=== PATIENT | female | born 1990 | race Caucasian/White ===

== ENCOUNTER 2016-06-18 05:35 | Inpatient (IN) | payer OTHER ==
--- NOTE | ~2016-06-18 | PA ---
Unit #: [id number] #: [id number] Patient: DIANA CRUZ [id number] [facility] [address] [place] [address] [id number] I MR#: [id number] NAME: DIANA CRUZ. ROOM: P114 Age: 26 Sex: F Admission Date: 06/18/2016 : 1990 Date of Assessment: 06/18/2016 Attending Physician: Salbador Rubalcava M.D. Admitting Physician: Salbador Rubalcava M.D. Primary Care Physician: Juli Alonso M.D. PSYCHIATRIC ASSESSMENT DATE OF SERVICE 06/18/2016. IDENTIFYING DATA Ms. Cruz is a 26-year-old white female, who is a resident of [place], [place], and was transferred to us from the hospital emergency room. CHIEF COMPLAINT "Someone is trying to put bullets in me." HISTORY OF PRESENT ILLNESS Ms. Cruz is a 26-year-old white female with history of mood disorder and psychosis, who was apparently missing for 24 hours and was found and was taken to the hospital emergency room by father and . The patient upon presentation stated that she felt that someone was trying to put bullets on her and stated that she is scared and stated over and over that she was scared that she was going to lose her kids and during initial assessment, the patient had extreme difficulty in complaining of thoughts and was exhibiting some looseness of association, cognitive impairment, and thought blocking, and acute psychosis with worsening depressive symptoms, was unkempt, disheveled, and had some cuts on her wrist and I made reference to hurting her brother's feeling and spoke about making her boyfriend angry and began to cry during assessment, but could not express what made her upset and stated that she has been having constant thoughts of wanting to harm herself and stated that she would slit her wrist and stated that she has been aggressive with family members. It appears that and father brought her to the hospital, but they left her prior to assessment and father on daughter's disappearance for past 24 hours and her erratic behavior once she was found and was seen to be exhibiting some acute psychosis and reports that she is homeless even though she has a and a father and was out of touch with reality and was medically cleared and was transferred to us as the patient was constantly reporting having thoughts of wanting to hurt herself and cut her wrist and was voicing suicidal thoughts, intent and plan with acute confusion and disappearing for 24 hours and having bizarre behavior and disorganized thought and speech, and was seen to be a significant danger to self and recommendation for inpatient level of care for safety and stabilization was made. SUBSTANCE ABUSE HISTORY The patient reports occasional use of cannabis, but denies any regular drug abuse. Unit #: [id number] #: [id number] Patient: DIANA CRUZ PAST PSYCHIATRIC HISTORY The patient has had psychiatric treatment and has been diagnosed and treated for mood disorder with psychosis and review of the medical records indicate that she is supposed to be on a combination of Zyprexa, Effexor, Strattera, and BuSpar that appears that she has been noncompliant with medications as she has been decompensating. PAST MEDICAL HISTORY The patient's medical history is insignificant. ALLERGIES Doxycycline, Prozac, penicillin. PERSONAL AND SOCIAL HISTORY A 26-year-old white female, who reports that she is and lives at home with her and has fairly decent social support system. MENTAL STATUS EXAMINATION Young white female who was casually dressed with fair personal hygiene, appears to be in no acute distress or discomfort. She was awake and alert on interaction with intact orientation to time, place, and person. Her mood was anxious and depressed with a congruent affect. Her speech was slow and restricted in content. Her thought processes were disorganized with some looseness of associations, thought blocking, paranoid ideations, and suicidal ideations. Her insight and judgment remain significantly impaired. DIAGNOSTIC IMPRESSION Psychiatric: Bipolar disorder, most recent episode depressed, recurrent, moderate, with psychosis. Medical: None. Stressors: Moderate psychosocial stressors. TREATMENT PLAN 1. The patient has presented with history of mood disorder and psychosis and has been decompensating and will need inpatient hospitalization for safety and stabilization. We will start her back on her home medications. We will monitor response and make further adjustments as needed. 2. Supportive therapy was provided to the patient. 3. Safe, structured, and nourishing environment will be provided. ESTIMATED LENGTH OF STAY 5 to 7 days. ABILITY TO HELP SELF Limited. WILLINGNESS TO HELP SELF The patient appears to be willing to help self. STRENGTHS 1. Communicative. 2. Cooperative. PROBLEMS 1. Chronic dysphoric symptoms. 2. Poor social support system. Unit #: [id number] #: [id number] Patient: DIANA CRUZ DISCHARGE CRITERIA This will be contingent upon the patient's ability to show resolution of her depression and anxiety and psychosis and her ability to stay safe to herself, particularly after discharge from the hospital. Dictated by... Jj Taylor/isabella TD: 06/19/2016 08:35 JOB #: [id number] PSYCHIATRIC ASSESSMENT Page 1 of 1 X Salbador Rubalcava MD X PSYCHIATRIC ASSESSMENT
--- NOTE | ~2016-06-18 | PN ---
Unit #: [id number] #: [id number] Patient: DIANA CRUZ [id number] [facility] [address] [place] [address] [id number] I MR#: [id number] NAME: DIANA CRUZ ROOM: P110 Age: 26 Sex: F Admission Date: 06/18/2016 : 1990 Attending Physician: Salbador Rubalcava M.D. Admitting Physician: Salbador Rubalcava M.D. Primary Care Physician: Juli Alonso M.D. [facility] NOT[facility] DATE OF SERVICE: 07/01/2016 SUBJECTIVE Ms. Cruz is a 26-year-old white female who was seen today and chart was reviewed, and case was discussed with the staff. She has been exhibiting bizarre behavior and has knocked the door and entered the room, she responds the knock and turned back and looked at me while she was lying in the bed and then she got back on the pillow and was seen to be awake with the eyes open and was able to acknowledge me and responsive to the knock on the door, but then she refused to interact with me or make eye contact or answer any of my questions and as I was trying to talk to her and engage her in conservation just lately and though she did not interact and it appears to be very intentional and that she did not appear to be in any acute distress or discomfort, just not wanting to talk, which appears to be a choice at this time. However, she has been taking medications including Zyprexa, which was just increased to 10 mg b.i.d. has adjusted without any tolerability issues. MENTAL STATUS EXAMINATION Young white female, who was casually dressed with fair personal hygiene, appears to be in no acute distress or discomfort. She was awake and alert on interaction with intact orientation. Her mood was anxious with congruent affect. She denies any suicidal or homicidal ideations. Her insight and judgment remain slightly impaired. TREATMENT PLAN 1. We will continue on her current medications and treatment protocol. We will monitor her response to the medications and make further adjustments as needed. 2. We will continue to follow up. Dictated by... Jj Taylor/isabella TD: 07/02/2016 03:18 JOB #: [id number] Unit #: [id number] #: [id number] Patient: DIANA CRUZ PROGRESS NOTES Page 1 of 1 X Salbador Rubalcava MD PROGRESS NOTE
--- NOTE | ~2016-06-18 | PN ---
Unit #: [id number] #: [id number] Patient: DIANA CRUZ [id number] [facility] [address] [place] [address] [id number] I MR#: [id number] NAME: DIANA CRUZ. ROOM: P114 Age: 26 Sex: F Admission Date: 06/18/2016 : 1990 Attending Physician: Salbador Rubalcava M.D. Admitting Physician: Salbador Rubalcava M.D. Primary Care Physician: Jj Lu PROGRESS NOTES DATE 06/24/2016 DISCUSSION Ms. Cruz is a 26-year-old white female with mood disorder. She was seen today and chart was reviewed and case was discussed with the staff. The patient has been anxious and withdrawn. SI is denied. On reports by me, she always had seemed to be in a catatonic state and refuses to interact socially or any conversation. Staff reports that later on she got up and got on the phone with her family and was crying and was talking to her kids as well and was crying, saying that she wants to get better to come home. She feels that she will be stuck here forever. She once again was seen to be unkempt, disheveled, curled up in her bed and refusing to interact with me very much and unable to carry on any meaningful conversation with significant thought blocking with disorganized thoughts, speech and behavior. She has been on Zyprexa and wanted to increase the dosage of that to 5 mg in the morning and 10 mg at bedtime. We will monitor her response to medication and made adjustments as needed. Dictated by... Jj Taylor/arsh TD: 06/25/2016 12:34 JOB #: [id number] [facility] PROGRESS NOTES Page 1 of 1 X Salbador Rubalcava MD PROGRESS NOTE
--- NOTE | ~2016-06-18 | PN ---
Unit #: [id number] #: [id number] Patient: DIANA CRUZ [id number] [facility] [address] [place] [address] [id number] I MR#: [id number] NAME: DIANA CRUZ. ROOM: 64 Age: 26 Sex: F Admission Date: 06/18/2016 : 1990 Attending Physician: Salbador Rubalcava M.D. Admitting Physician: Salbador Rubalcava M.D. Primary Care Physician: Jj Lu PROGRESS NOTES DATE June 19, 2016 DISCUSSION Ms. Cruz is a 26-year-old white female, who was seen today and chart was reviewed and the case was discussed with the staff. She has been anxious, withdrawn, and rather seclusive to herself and has been exhibiting some confusion and looseness of association, thought blocking, bizarre behavior, and difficulty following directions, and does not appear to be showing much improvement in her mood and functioning. MENTAL STATUS EXAMINATION Young white female, who was casually dressed with fair personal hygiene and appears to be in no acute distress or discomfort. The patient was awake and alert on interaction with intact orientation. Her mood was anxious with a congruent affect. Her speech is slow and restricted in content. Her thought processes are disorganized with some looseness of associations and thought blocking, and paranoid ideations. Her insight and judgment remain significantly impaired. TREATMENT PLAN 1. We will continue her on her current medications and treatment protocol, and will monitor her response to the medications, and make further adjustments as needed. 2. We will continue to followup. Dictated by... Jj Taylor/ingrid TD: 06/20/2016 05:29 JOB #: [id number] Unit #: [id number] #: [id number] Patient: DIANA CRUZ PROGRESS NOTES Page 1 of 1 X Salbador Rubalcava MD PROGRESS NOTE
--- NOTE | ~2016-06-18 | PN ---
Unit #: [id number] #: [id number] Patient: DIANA CRUZ [id number] [facility] [address] [place] [address] [id number] I MR#: [id number] NAME: DIANA CRUZ. ROOM: 14 Age: 26 Sex: F Admission Date: 06/18/2016 : 1990 Attending Physician: Salbador Rubalcava M.D. Admitting Physician: Salbador Rubalcava M.D. Primary Care Physician: Jj Lu PROGRESS NOTES DATE 06/21/2016 DISCUSSION Ms. Cruz is a 26-year-old white female with mood disorder and psychosis who was seen today and chart was reviewed and case was discussed with the staff who reports the patient continues to act very bizarre and violent and psychotic behavior since yesterday and has needed p.r.n. medications and seclusion and once again yesterday, the patient was taking her menses pads out and they were throwing them in the middle of the hallways and walking into males rooms and refusing to cooperate and throwing things at staff and flinging, swinging and refusing to cooperate. Intramuscular injection of Geodon and Ativan was given. Per reports, the patient was sitting in the day room in the chair and was in a frozen state and she was looking at the floor and would not make eye contact or acknowledge me or respond to any of the questions and had been exhibiting the same state of mind until she starts going into acute agitation and psychosis and with p.r.n. medications we will continue to monitor her response to treatment recommendations and we will make further adjustments as needed. Dictated by... Jj Taylor/minna TD: 06/23/2016 01:17 JOB #: [id number] [facility] PROGRESS NOTES Page 1 of 1 X Salbador Rubalcava MD PROGRESS NOTE
--- NOTE | ~2016-06-18 | PN ---
Unit #: [id number] #: [id number] Patient: DIANA CRUZ [id number] [facility] [address] [place] [address] [id number] I MR#: [id number] NAME: DIANA CRUZ. ROOM: [facility] Age: 26 Sex: F Admission Date: 06/18/2016 : 1990 Attending Physician: Salbador Rubalcava M.D. Admitting Physician: Salbador Rubalcava M.D. Primary Care Physician: Jj Lu PROGRESS NOTES DATE June 25, 2016 DISCUSSION Ms. Cruz is a 26-year-old, white female who was seen today and chart was reviewed. Her case was discussed with the staff. Patient has been anxious, withdrawn, and rather seclusive to herself. Meanwhile, she has been cooperative with treatment recommendations and has been taking medications and tolerating them fairly well with no reported side effects. MENTAL STATUS EXAMINATION Young white female who was casually dressed with a fair personal hygiene and appears to be in no acute distress or discomfort. She was awake and alert with impaired attention and concentration. Her mood is anxious with a congruent affect. Her speech is slow and restricted in content. Thought processes were disorganized with some looseness of association. Her insight and judgement remain significantly impaired. TREATMENT PLAN 1. We will continue on her current medications and treatment protocol. Will monitor her response to the medications and make further adjustments as needed. 2. We will continue to follow up. Dictated by... Jj Taylor/misael TD: 06/27/2016 07:36 JOB #: [id number] Unit #: [id number] #: [id number] Patient: DIANA CRUZ PROGRESS NOTES Page 1 of 1 X Salbador Rubalcava MD PROGRESS NOTE
--- NOTE | ~2016-06-18 | PN ---
Unit #: [id number] #: [id number] Patient: DIANA CRUZ [id number] [facility] [address] [place] [address] [id number] I MR#: [id number] NAME: DIANA CRUZ. ROOM: [facility] Age: 26 Sex: F Admission Date: 06/18/2016 : 1990 Attending Physician: Salbador Rubalcava M.D. Admitting Physician: Salbador Rubalcava M.D. Primary Care Physician: Jj Lu NOTES DATE OF SERVICE: 06/30/2016 SUBJECTIVE Ms. Cruz is a 26-year-old white female who was seen today and chart was reviewed, and case was discussed with the staff, who has been very seclusive to herself and has not been coming out socializing, interacting and has not been talking much at all patient was once again lying in a bed and was able to acknowledge me and make eye contact, then was just mumbling at best and I could not make anything out as to what she was trying to say and has been exhibiting similar behavior, though she has been taking the medications and is tolerating them fairly well. MENTAL STATUS EXAMINATION Young white female who was casually dressed with a fair personal hygiene and appears to be in no acute distress or discomfort. She was awake and alert on interaction with intact orientation. Her mood was anxious with a congruent affect. She denies any suicidal or homicidal ideations, and also denies any auditory or visual hallucinations. Her insight and judgment remain slightly impaired. TREATMENT PLAN 1. We will continue on her current medications and treatment protocol. We will monitor her response to the medication and make further adjustments as needed. 2. We will continue to follow up. Dictated by... Jj Taylor/isabella TD: 07/01/2016 05:07 JOB #: [id number] Unit #: [id number] #: [id number] Patient: DIANA CRUZ PROGRESS NOTES Page 1 of 1 X Salbador Rubalcava MD PROGRESS NOTE
--- NOTE | ~2016-06-18 | CO ---
Unit #: [id number] #: [id number] Patient: DIANA CRUZ [id number] [place] [address] [id number] I MR#: [id number] NAME: DIANA CRUZ ROOM: [facility] Age: 26 Sex: F Admission Date: 06/18/2016 : 1990 Attending Physician: Salbador Rubalcava M.D. Primary Care Physician: Juli Alonso M.D. Consultation Date: 06/20/2016 CONSULTATION REPORT SUBJECTIVE Diana is a 26-year-old with an abnormal urinalysis on admission. We have been asked to assess and treat. She has had no complaints of urgency, frequency, dysuria, nausea or vomiting. There have been no recorded increased temperatures. OBJECTIVE GENERAL: Alert, well nourished, in no apparent distress. VITAL SIGNS: Blood pressure 120/70, heart rate 80, respirations 16, temperature 98.6. DIAGNOSTIC STUDIES LABORATORY RESULTS: Admission urinalysis, 3+ bacteria, 50 to 100 wbc's. ASSESSMENT Urinary tract infection. PLAN Bactrim DS one p.o. b.i.d. x3 days. Dictated by... Shayy Edge PBreanneABreanne-C. for Jj Lee/isabella TD: 07/03/2016 02:04 JOB #: [id number] CONSULTATION REPORT Page 1 of 1 X Shayy Edge X CONSULTATION REPORT
--- NOTE | ~2016-06-18 | HP ---
Unit #: [id number] #: [id number] Patient: DIANA CRUZ [id number] [place] [address] [id number] I MR#: [id number] NAME: DIANA CRUZ. ROOM: [facility] Age: 26 Sex: F Admission Date: 06/18/2016 : 1990 Attending Physician: Salbador Rubalcava M.D. Admitting Physician: Salbador Rubalcava M.D. Primary Care Physician: Juli Alonso M.D. HISTORY AND PHYSICAL HISTORY OF PRESENT ILLNESS Diana is a 26 year old admitted to [address] [place] [address] with psychotic behavior. She remains quite psychotic and is not a good historian so her history is taken from her chart. PAST MEDICAL HISTORY 1. Asthma 2. History of migraine headaches PAST SURGICAL HISTORY Nothing reported ALLERGIES Penicillin, doxycycline, Prozac, Strattera SOCIAL HISTORY Smokes one pack per day. Denies alcohol. Admits to using marijuana on occasion. FAMILY HISTORY Medically noncontributory. REVIEW OF SYSTEMS She does not answer questions appropriately. There are no reports of nausea or vomiting or diarrhea. She has had no cough or increased temperature. CURRENT MEDICATIONS 1. Claritin 10 mg q day 2. Effexor 100 mg q day 3. Ditropan 10 mg q day 4. Zyprexa 5 mg q.h.s. 5. Tegretol 200 mg b.i.d. 6. BuSpar 15 mg b.i.d. 7. Milk of Magnesia p.r.n. 8. Maalox p.r.n. 9. Tylenol p.r.n. 10. Proventil inhaler p.r.n. 11. Nicotine patch 14 mg q day PHYSICAL EXAMINATION GENERAL: Alert, well-nourished, in no apparent distress. Unit #: [id number] #: [id number] Patient: DIANA CRUZ VITAL SIGNS: Blood pressure 110/76, heart rate 84, respirations 16, temperature 98.6. WEIGHT: 183 pounds. HEIGHT: 5'3". SKIN: Warm and dry without rash or lesion. HEENT: Normocephalic. TMs not viewed. Oral and nasal passages clear. Conjunctivae clear. Pupils equal, round and reactive to light and accommodation. Extraocular movements intact. NECK: Supple without lymphadenopathy or thyromegaly. HEART: Regular rate and rhythm without murmur. LUNGS: Clear. ABDOMEN: Soft, nontender. : Not done. EXTREMITIES: No evidence of cyanosis, clubbing or edema. Moves all extremities without focal deficit. NEUROLOGICAL: Grossly within normal limits. Cranial Nerves: II: Visual louis are intact. III, IV AND : Extraocular movements are intact. Pupils are equal, round and reactive to light. V: Facial sensation is grossly normal. VII: Facial movements and expression are normal. VIII: Auditory acuity grossly intact. IX, X: Uvula is midline. Phonation is normal. XI: Patient shrugs shoulders and turns head normally. XII: Tongue protrudes in the midline. Sensory and Motor Function: Sensory and motor sensation is grossly normal. Motor: moves all extremities well. Coordination: Gait is normal. Deep Tendon Reflexes: Intact. IMPRESSION Psychiatric admission RECOMMENDATIONS PSYCHIATRIC: Per psychiatrist. MEDICAL: I see no contraindications to participating in facility's activities. MEDICAL PROGNOSIS Good. MEDICAL CONDITION Stable. Dictated by... Shayy Edge P.A.-C. for Jj Lee/minna TD: 06/18/2016 22:28 JOB #: [id number] Unit #: [id number] #: [id number] Patient: DIANA CRUZ HISTORY AND PHYSICAL Page 1 of 1 X Shayy Edge X HISTORY AND PHYSICAL
--- NOTE | ~2016-06-18 | PN ---
Unit #: [id number] #: [id number] Patient: DIANA CRUZ [id number] [facility] [address] [place] [address] [id number] I MR#: [id number] NAME: DIANA CRUZ. ROOM: P114 Age: 26 Sex: F Admission Date: 06/18/2016 : 1990 Attending Physician: Salbador Rubalcava M.D. Admitting Physician: Salbador Rubalcava M.D. Primary Care Physician: Jj Lu PROGRESS NOTES DATE 06/20/2016 DISCUSSION Ms. Cruz is a 26-year-old white female who was seen today and chart was reviewed and case was discussed with the staff. She has been agitated, irritable, acutely psychotic and has been having episodes of violent outburst requiring p.r.n. intramuscular injections to be given and she got injection yesterday and then once again this morning. She started yelling, screaming, cursing and was very delusional and responding to internal stimuli and staff were unable to identify any triggers. However, she was throwing her dirty tampons out in the floors and staff had to ____ and she was swinging at them and screaming, yelling. An intramuscular injection of Geodon had to be given. Her medication had been initiated yesterday but she has not been able to show a therapeutic response and as such will transfer her to acute psychiatric unit for mental health and will monitor her response and make further adjustments in her medications and treatment as needed. Dictated by... Jj Taylor/macario TD: 06/20/2016 23:05 JOB #: [id number] [facility] PROGRESS NOTES Page 1 of 1 X Salbador Rubalcava MD PROGRESS NOTE
--- NOTE | ~2016-06-18 | PN ---
Unit #: [id number] #: [id number] Patient: DIANA CRUZ [id number] [facility] [address] [place] [address] [id number] I MR#: [id number] NAME: DIANA CRUZ. ROOM: P110 Age: 26 Sex: F Admission Date: 06/18/2016 : 1990 Attending Physician: Salbador Rubalcava M.D. Admitting Physician: Salbador Rubalcava M.D. Primary Care Physician: Jj Lu PROGRESS NOTES DATE 06/27/2016 DISCUSSION Ms. Cruz is a 26-year-old white female with mood disorder who was seen today and chart was reviewed and case was discussed with the staff. She has been anxious, withdrawn and rather seclusive to herself. Meanwhile, she has been cooperative with treatment recommendations and has been taking medications and tolerating them fairly well with no reported side effects. MENTAL STATUS EXAMINATION Young white female who was casually dressed with fair personal hygiene and appears to be in no acute distress or discomfort. She was awake and alert with impaired attention and concentration. Her mood was anxious with congruent affect. His speech is slow and restricted in content. Her thought processes were disorganized with some looseness of associations, thought blocking and paranoid ideations. Her insight and judgement remains significantly impaired. TREATMENT PLAN 1. Will continue on current medications and treatment protocol. Will monitor her response to the medications and make further adjustments as needed. 2. Will continue to follow up. Dictated by... Jj Taylor/macario TD: 06/30/2016 08:17 JOB #: [id number] Unit #: [id number] #: [id number] Patient: DIANA CRUZ PROGRESS NOTES Page 1 of 1 X Salbador Rubalcava MD PROGRESS NOTE
--- NOTE | ~2016-06-18 | PN ---
Unit #: [id number] #: [id number] Patient: DIANA CRUZ [id number] [facility] [address] [place] [address] [id number] I MR#: [id number] NAME: DIANA CRUZ. ROOM: P114 Age: 26 Sex: F Admission Date: 06/18/2016 : 1990 Attending Physician: Salbador Rubalcava M.D. Admitting Physician: Salbador Rubalcava M.D. Primary Care Physician: Jj Lu PROGRESS NOTES DATE 06/22/2016 DISCUSSION Ms. Cruz is a 26-year-old white female with mood disorder and psychosis who was seen today and chart was reviewed and case was discussed with the staff. She remains confused, anxious, withdrawn and rather seclusive to herself. Meanwhile, she has been taking medication and tolerating them fairly well with no reported side effects. However, she has been able to carry on any meaningful conversation. MENTAL STATUS EXAMINATION Young white female who was casually dressed with fair personal hygiene, appears to be in no acute distress or discomfort. She was awake and alert on interaction with intact orientation. Her mood was anxious with congruent affect. She denies any suicidal or homicidal ideations. Her insight and judgement remains slightly impaired. TREATMENT PLAN 1. We will continue her on her current treatment protocol. We will monitor her response and make further adjustments as needed. 2. We will continue to follow up. Dictated by... Jj Taylor/minna TD: 06/23/2016 21:49 JOB #: [id number] Unit #: [id number] #: [id number] Patient: DIANA CRUZ [facility] PROGRESS NOTES Page 1 of 1 X Salbador Rubalcava MD PROGRESS NOTE
--- NOTE | ~2016-06-18 | PN ---
Unit #: [id number] #: [id number] Patient: DIANA CRUZ [id number] [facility] [address] [place] [address] [id number] I MR#: [id number] NAME: DIANA CRUZ. ROOM: P114 Age: 26 Sex: F Admission Date: 06/18/2016 : 1990 Attending Physician: Salbador Rubalcava M.D. Admitting Physician: Salbador Rubalcava M.D. Primary Care Physician: Jj Lu PROGRESS NOTES DATE 06/23/2016 DISCUSSION Ms. Cruz is a 26-year-old white female who was seen today and chart was reviewed and case was discussed with the staff. She has been anxious, withdrawn and rather seclusive to herself though once again has been exhibiting bizarre behavior, significant thought blocking, poor personal hygiene as she has been moved to a private camera monitoring room and her personal hygiene has been very compromised and her clothes and stuff are all over the room and she is curled up in the bed and that she was able to acknowledge me and look at me, she was unable to utter even a single word or single sentence and has not been able to carry on any meaningful conversation. She then has been seen to have episodes of violent outburst with physical aggression requiring management and p.r.n. medications to be given. As such, will continue current level of precautions and treatment protocol. Will monitor her response to treatment intervention. Will make further adjustments as needed. Dictated by... Jj Taylor/macario TD: 06/24/2016 19:42 JOB #: [id number] [facility] PROGRESS NOTES Page 1 of 1 X Salbador Rubalcava MD PROGRESS NOTE
--- NOTE | ~2016-06-18 | PN ---
Unit #: [id number] #: [id number] Patient: DIANA CRUZ [id number] [facility] [address] [place] [address] [id number] I MR#: [id number] NAME: DIANA CRUZ. ROOM: [facility] Age: 26 Sex: F Admission Date: 06/18/2016 : 1990 Attending Physician: Salbador Rubalcava M.D. Admitting Physician: Salbador Rubalcava M.D. Primary Care Physician: Jj Lu PROGRESS NOTES DATE 06/29/2016 DISCUSSION The patient is abed today. She offers no complaints but is virtually mute during attempted interview. Dr. Rubalcava will resume care of the patient on 06/30/2016. Dictated by... Main Talavera M.D. CB/minna TD: 06/30/2016 04:28 JOB #: [id number] [facility] PROGRESS NOTES Page 1 of 1 X Main Talavera MD X PROGRESS NOTE
--- NOTE | ~2016-06-18 | DS ---
Unit #: [id number] #: [id number] Patient: DAINA CRUZ [id number] [facility] [address] [place] [address] [id number] I MR#: [id number] NAME: DIANA CRUZ. ROOM: P110 Age: 26 Sex: F Admission Date: 06/18/2016 : 1990 Discharge Date: 07/02/2016 Attending Physician: Salbador Rubalcava M.D. Primary Care Physician: Juli Alonso M.D. DISCHARGE SUMMARY IDENTIFYING DATA Ms. Cruz is a 26-year-old white female, who is a resident of [place], [place] and was transferred to us from the emergency room. DISCHARGE DIAGNOSES Psychiatric: Bipolar disorder, most recent episode depressed, recurrent, moderate, with psychosis. Medical: None. Stressors: Moderate psychosocial stressors. HISTORY OF PRESENT ILLNESS Please see initial psychiatric evaluation for details. PAST PSYCHIATRIC HISTORY Please see initial psychiatric evaluation for details. PAST MEDICAL HISTORY Please see initial psychiatric evaluation for details. HOSPITAL COURSE The patient [facility] and was oriented to the hospital environment. Routine p.r.n. medications were initiated, and she was started back on her home medication. However, on presentation, the patient was seen to be acutely psychotic with confusion, thought blocking, bizarre behavior, inability to carry any meaningful conversation, and was seen to be very seclusive and guarded to herself. However soon afterwards, she started getting agitated and irritable, and aggressive and was creating lot of disturbance on the unit, and walking towards the patient's room, and refusing to follow direction. The patient is also seen to be taking her menstrual pads out and throwing it across in the hallways and the patient's room and was in holding and seclusion and restraints twice. Intramuscular injections and p.r.n. medications were given and medications as such were adjusted and Zyprexa was added, which was then gradually titrated and though she responded the medication in a way that she did not show any further episode of agitation, aggression, hostility, requiring any physical interventions with seclusion and restraints, she was still seen to be very withdrawn and seclusive to herself. Noticed that she was awake and alert as she would acknowledge of my knocking at the door and look at me, but then she will choose intentionally not to talk to me at all and was taking the medications regularly and was tolerating them fairly well and with no further adjustments being made in her medications, it was decided that she will be discharged home and will continue treatment on an outpatient basis. Unit #: [id number] #: [id number] Patient: DIANA CRUZ DISCHARGE MEDICATIONS Effexor 100 mg a day for depression and Zyprexa 10 mg b.i.d. for psychosis and BuSpar 15 mg b.i.d. for anxiety. DISCHARGE CONDITION Stable. PROGNOSIS Fair. Dictated by... Jj Taylor/isabella TD: 07/02/2016 07:22 JOB #: [id number] DISCHARGE SUMMARY Page 1 of 1 X Salbador Rubalcava MD X DISCHARGE SUMMARY
--- NOTE | ~2016-06-18 | A ---
[facility] Nutrition Therapy DATE: 06/30/16 Patient: DIANA CRUZ Physician: CONNORF Address: [address] [place] [address] Room/Bed: [address], Zip: [place] [address] Admit Date: 06/18/16 Date of : [birth year] Height: 5 3 Weight: 183 83.46 NUTRITIONAL ASSESSMENT: REASON: LENGTH OF STAY PATIENT ADMITTED FOR PSYCHOTIC BEHAVIORS PMH: ASTHMA Anthropometrics: HT: 5'3", WT: 183#, BMI: 32.4 Labs: 06/19/16- BUN: 8 Meds: ZYPREXA, THORAZINE, EFFEXOR, BUSPAR Assessment: PATIENT IS A 26 Y/O FEMALE ADMITTED FOR PSYCHOTIC BEHAVIORS. PATIENT IS CURRENTLY UNEMPLOYED, LIVES WITH , SMOKES 1 PPS, AND USES MARIJUANA OCCASIONALLY. PATIENT WAS BROUGHT TO THE HOSPITAL AFTER MISSING FOR 24 HOURS. IT IS ASSUMED THAT SHE HAS BEEN NON-COMPLIANT WITH HER MEDICATIONS PRIOR TO ADMIT. UPON ADMIT PATIENT WAS UNABLE TO CARRY OUT CONVERSATIONS, HAD VIOLENT OUTBURSTS, AND WAS MOSTLY NON-VERBAL. PATIENT CONTINUES TO BE NON-VERBAL AT TIMES AND SHE IS VERY TEARFUL. NURSING REPORTS CONSISTENTLY GOOD PO INTAKES. PATIENT'S WEIGHT HX IS UNKNOWN. THERE ARE NO SKIN OR GI ISSUES NOTED ATT. PATIENT IS ON A REGULAR DIET. Dx: NO NUTRITION DX Intervention: REGULAR DIET, MEDS PER MD, PSYCH Monitoring, Evaluation and Goals: 1. ADEQUATE PO INTAKES >50% OF MEALS 2. PREVENT, CORRECT MICRO/MACRO NUTRIENT DEFICIENCIES MONITOR: WEIGHTS, LABS, PO/FLUID INTAKES Recommendations: 1. CONTINUE REGULAR DIET TOLERATED 2. ENCOURAGE ADEQUATE PO AND FLUID INTAKES RD TO F/U PER PROTOCOL AND PRN R/T PATIENT NOT AT NUTRITIONAL RISK ATT [facility] Nutrition Therapy DATE: 06/30/16 Patient: DIANA CRUZ Physician: CONNORF Address: [address] [place] [address] Room/Bed: [address], Zip: [place] [address] Admit Date: 06/18/16 Date of : [birth year] Height: 5 3 Weight: 183 83.46 Respectfully, DWIGHT KNOTT, RD, LD [facility] cc: client file
--- NOTE | ~2016-06-18 | PN ---
Unit #: [id number] #: [id number] Patient: DIANA CRUZ [id number] [facility] [address] [place] [address] [id number] I MR#: [id number] NAME: DIANA CRUZ. ROOM: [facility] Age: 26 Sex: F Admission Date: 06/18/2016 : 1990 Attending Physician: Salbador Rubalcava M.D. Admitting Physician: Salbador Rubalcava M.D. Primary Care Physician: Jj Lu PROGRESS NOTES DATE 06/27/2016 DISCUSSION The patient is in bed resting comfortably. Staff reports no management issues. Dictated by... Main Talavera M.D. CB/macario TD: 06/28/2016 15:19 JOB #: [id number] [facility] PROGRESS NOTES Page 1 of 1 X Main Talavera MD X PROGRESS NOTE
[~2016-06-18 05:35] MED LIST: ALBUTEROL17 GM INH; DITROPAN PO; MACROBID100 MG PO; PRENATAL1 TA1 PO
[2016-06-18 12:40] LABS: URINE APPEARANCE CLOUDY; URINE BILIRUBIN NEG (NEG); URINE BLOOD TRACE (NEG); URINE COLOR YELLOW; URINE GLUCOSE NEG (NEG); URINE KETONE NEG (NEG); URINE LEUKOCYTE ESTERASE 3+ (NEG); URINE NITRATE NEG (NEG); URINE PROTEIN NEG (NEG); URINE SPECIFIC GRAVITY 1.002 (1.003-1.035); URINE UROBILINOGEN 0.2 MG/DL (NEG)
[2016-06-18 12:44] LABS: U HYALINE CASTS AUWI 0-2 /[LPF]; URBCS1 AUWI 0-2 /[HPF] (0-2); URINE BACTERIA AUWI 3+ (NEGATIVE); URINE SQUAMOUS EPITHELIAL CELL MANY /[HPF]; UWBCS1 AUWI 50-100 (0-5)
[2016-06-18 12:47] LABS: URINE SOURCE CLEAN CATCH
[2016-06-18 13:08] LABS: AMPHETAMINE NEG (NEG); BARBITURATES NEG (NEG); BENZODIAZEPINES NEG (NEG); COCAINE NEG (NEG); MARIJUANA POS (NEG); OPIATES NEG (NEG); TRICYCLIC ANTIDEPRESSANTS NEG (NEG); U METHADONE NEG (NEG)
[2016-06-19 09:46] LABS: BASOPHIL# 0.1 X10e3 (0-0.3); BASOPHIL% 0.7 % (0-2.5); EOSINOPHIL% 0.4 % (0.0-7.0); HEMATOCRIT 42.7 % (35.0-45.0); HEMOGLOBIN 13.7 gm/dL (12.0-16.0); LYMPHOCYTE# 3.3 X10e3 (1.0-3.5); LYMPHOCYTE% 36.9 % (17.0-45.0); MEAN CELL VOLUME 84.8 FL (83-96); MEAN CORPUSCULAR HEMOGLOBIN 27.2 PG (28-34); MEAN CORPUSCULAR HGB CONC 32.1 g/dL (30-36); MEAN PLATELET VOLUME 9.6 FL (6.5-11.5); MONOCYTE# 0.9 X10e3 (0-1.0); MONOCYTE% 9.7 % (3.0-12.0); NEUTROPHIL# 4.7 X10e3 (1.5-7.1); NEUTROPHIL% 52.3 % (40-75); PLATELET COUNT 241 X10e3 (140-420); RED BLOOD COUNT 5.03 X10e (3.90-5.30); RED CELL DISTRIBUTION WIDTH 16.4 % (11.0-15.5)
[2016-06-19 10:11] LABS: THYROID STIMULATING HORMONE 0.74 uIU/ml (0.34-5.60)
[2016-06-19 10:18] LABS: FREE THYROXIN (T4) 0.93 ng/dL (0.58-1.64)
[2016-06-19 10:22] LABS: ALBUMIN SERUM 4.5 g/dL (3.5-5.0); BILIRUBIN,TOTAL 0.1 mg/dL (0.2-2.0); BUN/CREATININE RATIO 13.33; CALCIUM SERUM 9.8 mg/dL (8.4-10.2); CREATININE SERUM 0.6 mg/dL (0.6-1.4); GLOM FILT RATE Estimated 126.7 mL/min (>60); POTASSIUM 3.8 mmol/L (3.5-5.1); TEGRETOL (CARBAMAZEPINE) 2.2 ug/mL (4.0-12.0)
[2016-06-19 10:24] LABS: DIFF IND NO
== END 2016-07-02 12:30 | disposition home or self-care (01) | DRG 885 ==
LOC: P2L 05:35 → P1S 06-20 08:58
PROVIDERS: Psychiatry & Neurology Psychiatry
DX: F31.32 Bipolar disorder, current episode depressed, moderate (principal); N39.0 Urinary tract infection, site not specified; J45.909 Unspecified asthma, uncomplicated; Z88.1 Allergy status to other antibiotic agents; Z88.0 Allergy status to penicillin; Z88.8 Allergy status to other drugs, medicaments and biological substances; F41.9 Anxiety disorder, unspecified; F17.210 Nicotine dependence, cigarettes, uncomplicated
CPT/HCPCS: 80053; 80156; 80307; 81003; 84439; 84443; 85025; J1200; J2060; J3486